=== PATIENT | female | born 1965 ===

== ENCOUNTER 2018-11-22 10:00 | Inpatient (IN) | payer OTHER ==
[~2018-11-22] VITALS: Ht 157.5 cm; Wt 69.9 kg
[2018-11-22] MEDS ORDERED: NEURONTIN800 MG (15:00)
[2018-11-22] MEDS ORDERED: EFFEXOR XR75 MG (15:01)
[2018-11-22] MEDS ORDERED: EFFEXOR XR150 MG (15:03)
[2018-11-22] MEDS ORDERED: ZANTAC300 MG (15:04)
[2018-11-22] MEDS ORDERED: PROTONIX40 MG (15:06)
[2018-11-22] MEDS ORDERED: DALMANE30 MG (15:06)
[2018-11-22] MEDS ORDERED: ATIVAN2 M1 (15:07)
[2018-11-22] MEDS ORDERED: COZAAR25 MG (15:07)
[2018-11-22] MEDS ORDERED: TOPAMAX25 MG (15:08)
[2018-11-22] MEDS ORDERED: ZANAFLEX4 M1 (15:08)
[2018-11-22] MEDS ORDERED: DICY20TA (15:09)
[2018-11-22] MEDS ORDERED: BUSPIRONE HCL15 MG (15:09)
[2018-11-22] MEDS ORDERED: CLINORIL PO (15:50)
[2018-11-22] MEDS ORDERED: VIT D3 PO (15:51)
[2019-01-02] MEDS ORDERED: VITAMIN D350000 UNIT PO (10:02)
[2019-01-02] MEDS ORDERED: SULINDAC200 MG PO (10:07)
[2019-01-05] MEDS ORDERED: HYOSCYAMINE0.125 M1 SL (11:09)
[2019-01-05] MEDS ORDERED: MIRALAX17 GM PO (11:10)
[2019-01-05] MEDS ORDERED: INTESTINEX680 M1 PO (11:10)
== END 2019-01-05 14:44 | disposition home or self-care (01) | DRG 330 ==
LOC: SURG 11-28 07:00 → O/R 01-02 08:18 → SURH 01-02 08:18 → SURG 01-02 10:00 → SURH 01-02 13:27
PROVIDERS: ADMIT Surgery
PROC: 0DJD8ZZ Inspection of Lower Intestinal Tract, Via Natural or Artificial Opening Endoscopic (ICD-10-PCS; 2019-01-02)
PROC: 0DTN4ZZ Resection of Sigmoid Colon, Percutaneous Endoscopic Approach (ICD-10-PCS; principal; 2019-01-02 10:45)
DX: K59.02 Outlet dysfunction constipation (principal); K56.51 Intestinal adhesions [bands], with partial obstruction; K57.32 Diverticulitis of large intestine without perforation or abscess without bleeding; K58.0 Irritable bowel syndrome with diarrhea; N73.6 Female pelvic peritoneal adhesions (postinfective)